=== PATIENT | female | born 1985 | race Caucasian/White ===

== ENCOUNTER 2017-05-29 16:40 | Emergency (ER) | payer BC ==
[~2017-05-29] VITALS: Ht 160 cm; Wt 56.4 kg
[2017-05-29 17:16] LABS: HEMATOCRIT 42.8 % (36.0-46.0); MCH 30.1 PG (29.0-34.0); MCHC 34.8 G/DL (30.0-36.0); MCV 86.5 FL (83-99); MEAN PLAT.VOLUME 8.9 uM^3 (9.5-12.4); PLATELET COUNT 248 K/uL (156-360); RBC DIS.WIDTH-SD 38.2 % (39-53); RED BLOOD COUNT 4.95 M/uL (3.80-5.20); WHITE BLOOD COUNT 11.8 K/uL (4.1-10.2)
[2017-05-29 17:24] LABS: CHLORIDE 107 mEq/L (99-109); POTASSIUM 3.8 mEq/L (3.7-5.4); SODIUM 137 mEq/L (136-147)
[2017-05-29 17:26] LABS: GLUCOSE 113 mg/dL (70-99)
[2017-05-29 17:27] LABS: ANION GAP 10 MEQ/L (2-14)
[2017-05-29 17:28] LABS: TOTAL BILIRUBIN 0.6 mg/dL (0.0-1.0)
[2017-05-29 17:30] LABS: ALKALINE PHOSPHATASE 66 IU/L (3-129); GFR ESTIMATE (CALCULATED) > 59 mL/min/
[2017-05-29 17:31] LABS: UREA NITROGEN (BUN) 20 mg/dL (9-23)
[2017-05-29 17:33] LABS: LIPASE 24 U/L (1.0-51.0)
[2017-05-29 17:41] LABS: QUANTITATIVE HCG < 4.0 MIU/ML
[2017-05-29] MEDS ORDERED: ZOFRAN ODT4 MG PO (20:11)
[2017-05-29] MEDS ORDERED: PERCOCET 5/31 TABLET PO (20:11)
[2017-05-29] MEDS ORDERED: ZANTAC300 MG PO (20:11)
[2017-05-29 20:22] VITALS: BP 110/62
== END 2017-05-29 20:23 | disposition home or self-care (01) ==
LOC: EME 16:40
DX: R10.13 Epigastric pain (principal); R11.2 Nausea with vomiting, unspecified; K58.0 Irritable bowel syndrome with diarrhea; Z97.5 Presence of (intrauterine) contraceptive device
CPT/HCPCS: 74177; 80053; 81003; 83690; 84702; 85027; 93005; 99281; 99285; J2270; J2405; J2765; J3010; J7030

== ENCOUNTER → 2017-07-05 | Outpatient (CLI) | payer BC ==
[~2017-07-05] VITALS: Ht 160.7 cm; Wt 53.1 kg
[~2017-07-05] MED LIST: AMOXICILLIN500 MG PO; BENADRYL50 MG PO; BIAXIN500 MG PO; MIRENA1 EACH IY; MORPHINE SULFAT15 MG PO; PERCOCET 5/31 TABLET PO; PROTONIX40 MG PO; ZANTAC300 MG PO; ZOFRAN ODT4 MG PO
== END | disposition home or self-care (01) ==
LOC: AMB 11:41
PROC: 0DB68ZX Excision of Stomach, Via Natural or Artificial Opening Endoscopic, Diagnostic (ICD-10-PCS; principal; 2017-07-05)
DX: K29.50 Unspecified chronic gastritis without bleeding (principal); R11.2 Nausea with vomiting, unspecified; K21.9 Gastro-esophageal reflux disease without esophagitis; Z80.0 Family history of malignant neoplasm of digestive organs
CPT/HCPCS: 88305; 88342 TC; J2250; J3010